=== PATIENT | female | born 1950 | race Caucasian/White ===

== ENCOUNTER 2016-04-21 09:29 | Inpatient (IN) | payer MEDICARE, MEDICAID ==
[~2016-04-21] VITALS: Ht 180.3 cm; Wt 65.8 kg
[2016-04-21] MEDS ORDERED: HYDROCODONE/APAP 5/325MG 1 EACH TABLET ONE (09:43)
[2016-04-21] MEDS ORDERED: HYDROCODONE/APAP 5/325MG 1 EACH TABLET PO ONE (10:00)
[2016-04-21 10:32] LABS: BASOPHILS % (AUTO) 0.4 % (0.0-2.0); DIFF TOTAL % 100 %; EOSINOPHILS # (AUTO) 0.4 /CMM (0.0-0.7); EOSINOPHILS % (AUTO) 6.3 % (0.0-6.0); HEMATOCRIT 37 % (33-45); HEMOGLOBIN 12.4 g/dL (11.5-14.8); LYMPHOCYTES # (AUTO) 1.5 /CMM (0.8-4.8); LYMPHOCYTES % (AUTO) 25.1 % (20.0-44.0); MEAN CORPUSCULAR HEMOGLOBIN 28 PG (26.0-33.0); MEAN CORPUSCULAR HGB CONC 34 g/dl (31.0-36.0); MEAN CORPUSCULAR VOLUME 84 fL (82-100); MONOCYTES # (AUTO) 0.7 /CMM (0.1-1.30); MONOCYTES % (AUTO) 11.7 % (2.0-12.0); NEUTROPHILS # (AUTO) 3.3 /CMM (1.8-8.9); NEUTROPHILS % (AUTO) 56.5 % (43.0-81.0); PLATELET COUNT (AUTO) 292 /CMM (150-450); RED BLOOD CELL COUNT(AUTO) 4.41 MIL/uL (4.0-5.2); WHITE BLOOD COUNT (AUTO) 5.8 K/uL (4.3-11.0)
[2016-04-21 10:41] LABS: ANION GAP 12 (5-14); CALCIUM, SERUM 8.7 mg/dL (8.5-10.1); CARBON DIOXIDE 27 mmol/L (21-32); CHLORIDE 107 mmol/L (98-107); CREATININE 1.8 mg/dL (0.6-1.3); GFR 28 mL/min (>60); GLUCOSE 132 mg/dL (74-106); POTASSIUM 3.6 mmol/L (3.5-5.1); SODIUM SERUM 142 mmol/L (136-145); UREA NITROGEN, BLOOD 28 mg/dL (7-18)
[2016-04-21 10:46] LABS: INR 0.91 (0.87-1.13); PROTHROMBIN TIME 9.8 SECS (9.5-12.7)
[2016-04-21 10:47] LABS: ALANINE AMINOTRANSFERASE 18 U/L (12-78); ALBUMIN 3.5 g/dL (3.4-5.0); ASPARTATE AMINOTRANSFERASE 12 U/L (15-37); BILIRUBIN,DIRECT 0.1 mg/dL (0.0-0.2); BILIRUBIN,TOTAL 0.2 mg/dL (0.2-1.0); INDIRECT BILIRUBIN 0.1 mg/dL (0.0-1.1); TOTAL PROTEIN, SERUM 7.5 g/dL (6.4-8.2)
[2016-04-21 10:48] LABS: TROPONIN I < 0.017 ng/mL (0.00-0.056)
[2016-04-21] MEDS ORDERED: AMLO10TA2 PO (12:23)
[2016-04-21] MEDS ORDERED: ESCI20TA PO (12:23)
[2016-04-21] MEDS ORDERED: BUPR300T54 PO (12:23)
[2016-04-21] MEDS ORDERED: GABA600T2 PO (12:23)
[2016-04-21] MEDS ORDERED: PRAV40TA3 PO (12:23)
[2016-04-21] MEDS ORDERED: QUET25TA PO (12:23)
[2016-04-21] MEDS ORDERED: CLON0.5T4 PO (12:23)
[2016-04-21] MEDS ORDERED: LOSA25TA13 PO (12:23)
[2016-04-21] MEDS ORDERED: OMEP20TA68 PO (12:23)
[2016-04-21] MEDS ORDERED: HYDR-3026 PO (12:23)
[2016-04-21 12:34] VITALS: BP 129/74
[2016-04-21] MEDS ORDERED: ZOLPIDEM TARTRATE 5 MG TABLET PO PRN (14:00)
[2016-04-21] MEDS ORDERED: MAGNESIUM HYDROXIDE 30 ML UDC PO PRN (14:00)
[2016-04-21] MEDS ORDERED: MAG HYDROX/AL HYDROX/SIMETH 30 ML UDC PO PRN (14:00)
[2016-04-21] MEDS: ACETAMINOPHEN 325 MG TABLET PO PRN (15:49)
[2016-04-21 16:10] VITALS: BP 132/71
[2016-04-21] MEDS: GABAPENTIN 300 MG CAPSULE PO SCH (17:00)
[2016-04-21 19:47] VITALS: BP 115/59
[2016-04-21] MEDS: ATORVASTATIN 10 MG TABLET PO SCH (22:07)
[2016-04-21] MEDS: LOSARTAN POTASSIUM 25 MG TABLET PO SCH (22:07)
[2016-04-22 07:24] LABS: ALBUMIN 3.2 g/dL (3.4-5.0); BILIRUBIN,TOTAL 0.2 mg/dL (0.2-1.0); CALCIUM, SERUM 8.4 mg/dL (8.5-10.1); CREATININE 1.7 mg/dL (0.6-1.3); POTASSIUM 4.2 mmol/L (3.5-5.1); TOTAL PROTEIN, SERUM 6.8 g/dL (6.4-8.2)
[2016-04-22] MEDS: PANTOPRAZOLE 40 MG TABLET.DR PO SCH (07:30)
[2016-04-22] MEDS: GABAPENTIN 300 MG CAPSULE PO SCH ×2 (08:47→18:09)
[2016-04-22] MEDS: GUAIFENESIN/CODEINE 10 ML UDC PO PRN ×2 (08:47→18:21)
[2016-04-22] MEDS: AMLODIPINE BESYLATE 10 MG TABLET PO SCH (08:48)
[2016-04-22] MEDS: ACETAMINOPHEN 325 MG TABLET PO PRN ×2 (08:55→18:21)
[2016-04-22 09:23] VITALS: BP 16/57
[2016-04-22] MEDS ORDERED: Z GUARD REMEDY 2 OZ OINT TP PRN (12:00)
[2016-04-22] MEDS: NEOMY SULF/BACITRAC ZN/POLY 15 GM TUBE TP SCH (13:12)
[2016-04-22] MEDS: ARIPIPRAZOLE 5 MG TABLET PO SCH (14:20)
[2016-04-22 15:52] VITALS: BP 136/69
[2016-04-22 20:08] VITALS: BP 161/87
[2016-04-22] MEDS: QUETIAPINE FUMARATE 25 MG TABLET PO SCH (21:20)
[2016-04-22] MEDS: ATORVASTATIN 10 MG TABLET PO SCH (21:20)
[2016-04-22] MEDS: LOSARTAN POTASSIUM 25 MG TABLET PO SCH (21:22)
[2016-04-23] MEDS: ACETAMINOPHEN 325 MG TABLET PO PRN (06:12)
[2016-04-23] MEDS: GUAIFENESIN/CODEINE 10 ML UDC PO PRN ×2 (06:12→21:37)
[2016-04-23 08:02] VITALS: BP 121/62
[2016-04-23] MEDS: PANTOPRAZOLE 40 MG TABLET.DR PO SCH (08:10)
[2016-04-23] MEDS: GABAPENTIN 300 MG CAPSULE PO SCH ×2 (08:28→16:56)
[2016-04-23] MEDS: BUPROPION XL 150 MG TAB.ER.24 PO SCH (08:28)
[2016-04-23] MEDS: AMLODIPINE BESYLATE 10 MG TABLET PO SCH (08:29)
[2016-04-23] MEDS: NEOMY SULF/BACITRAC ZN/POLY 15 GM TUBE TP SCH (08:29)
[2016-04-23] MEDS: ARIPIPRAZOLE 5 MG TABLET PO SCH (08:29)
[2016-04-23] MEDS ORDERED: IV NS 0.9% 1,000 ML BAG IV ONE (12:00)
[2016-04-23] MEDS: LORAZEPAM 0.5 MG TABLET PO PRN (12:14)
[2016-04-23] MEDS ORDERED: IV SET PRIMARY PUMP SET 1 EA INFUS.SET MC ONE (13:11)
[2016-04-23 16:21] VITALS: BP 136/69
[2016-04-23 20:03] VITALS: BP 147/64
[2016-04-23] MEDS: LOSARTAN POTASSIUM 25 MG TABLET PO SCH (21:27)
[2016-04-23] MEDS: QUETIAPINE FUMARATE 25 MG TABLET PO SCH (21:28)
[2016-04-23] MEDS: ATORVASTATIN 10 MG TABLET PO SCH (21:28)
[2016-04-24] MEDS: LORAZEPAM 0.5 MG TABLET PO PRN ×2 (04:37→15:25)
[2016-04-24] MEDS: ACETAMINOPHEN 325 MG TABLET PO PRN ×2 (04:45→22:49)
[2016-04-24 07:48] LABS: CHOLESTEROL 174 mg/dL (<200); HDL CHOLESTEROL 34 mg/dL (40-60); LDL 89 mg/dL (0-99); TRIGLYCERIDES 249 mg/dL (30-150)
[2016-04-24 08:00] VITALS: BP 139/74
[2016-04-24] MEDS: PANTOPRAZOLE 40 MG TABLET.DR PO SCH (08:02)
[2016-04-24] MEDS: BUPROPION XL 150 MG TAB.ER.24 PO SCH (08:16)
[2016-04-24] MEDS: ARIPIPRAZOLE 5 MG TABLET PO SCH ×2 (08:16→16:45)
[2016-04-24] MEDS: AMLODIPINE BESYLATE 10 MG TABLET PO SCH (08:16)
[2016-04-24] MEDS: GABAPENTIN 300 MG CAPSULE PO SCH ×2 (08:16→16:45)
[2016-04-24] MEDS: NEOMY SULF/BACITRAC ZN/POLY 15 GM TUBE TP SCH (10:05)
[2016-04-24 16:00] VITALS: BP 147/74
[2016-04-24] MEDS: GUAIFENESIN/CODEINE 10 ML UDC PO PRN (17:24)
[2016-04-24 20:00] VITALS: BP 148/81
[2016-04-24] MEDS: ATORVASTATIN 10 MG TABLET PO SCH (21:28)
[2016-04-24] MEDS: LOSARTAN POTASSIUM 25 MG TABLET PO SCH (21:28)
[2016-04-24] MEDS: QUETIAPINE FUMARATE 25 MG TABLET PO SCH (21:28)
[2016-04-25 07:45] LABS: BASOPHILS % (AUTO) 0.4 % (0.0-2.0); DIFF TOTAL % 100 %; EOSINOPHILS # (AUTO) 0.5 /CMM (0.0-0.7); EOSINOPHILS % (AUTO) 8.7 % (0.0-6.0); HEMATOCRIT 35 % (33-45); HEMOGLOBIN 11.7 g/dL (11.5-14.8); LYMPHOCYTES # (AUTO) 1.4 /CMM (0.8-4.8); LYMPHOCYTES % (AUTO) 26.1 % (20.0-44.0); MEAN CORPUSCULAR HEMOGLOBIN 29 PG (26.0-33.0); MEAN CORPUSCULAR HGB CONC 34 g/dl (31.0-36.0); MEAN CORPUSCULAR VOLUME 84 fL (82-100); MONOCYTES # (AUTO) 0.5 /CMM (0.1-1.30); MONOCYTES % (AUTO) 9.7 % (2.0-12.0); NEUTROPHILS % (AUTO) 55.1 % (43.0-81.0); PLATELET COUNT (AUTO) 260 /CMM (150-450); RED BLOOD CELL COUNT(AUTO) 4.09 MIL/uL (4.0-5.2); WHITE BLOOD COUNT (AUTO) 5.4 K/uL (4.3-11.0)
[2016-04-25 07:57] LABS: CALCIUM, SERUM 8.4 mg/dL (8.5-10.1); CREATININE 1.6 mg/dL (0.6-1.3); POTASSIUM 3.7 mmol/L (3.5-5.1)
[2016-04-25 08:00] VITALS: BP 126/66
[2016-04-25] MEDS: GABAPENTIN 300 MG CAPSULE PO SCH ×2 (08:43→16:29)
[2016-04-25] MEDS: AMLODIPINE BESYLATE 10 MG TABLET PO SCH (08:44)
[2016-04-25] MEDS: ARIPIPRAZOLE 5 MG TABLET PO SCH ×2 (08:44→16:30)
[2016-04-25] MEDS: BUPROPION XL 150 MG TAB.ER.24 PO SCH (08:44)
[2016-04-25] MEDS: PANTOPRAZOLE 40 MG TABLET.DR PO SCH (08:44)
[2016-04-25] MEDS: NEOMY SULF/BACITRAC ZN/POLY 15 GM TUBE TP SCH (08:45)
[2016-04-25] MEDS: GUAIFENESIN/CODEINE 10 ML UDC PO PRN ×2 (09:30→18:07)
[2016-04-25 16:00] VITALS: BP 131/59
[2016-04-25 20:00] VITALS: BP 139/65
[2016-04-25] MEDS: LORAZEPAM 0.5 MG TABLET PO PRN (20:27)
[2016-04-25] MEDS: QUETIAPINE FUMARATE 25 MG TABLET PO SCH (21:17)
[2016-04-25] MEDS: LOSARTAN POTASSIUM 25 MG TABLET PO SCH (21:17)
[2016-04-25] MEDS: ATORVASTATIN 10 MG TABLET PO SCH (21:17)
[2016-04-26] MEDS: GUAIFENESIN/CODEINE 10 ML UDC PO PRN ×2 (07:09→22:16)
[2016-04-26 07:20] LABS: BASOPHILS % (AUTO) 0.3 % (0.0-2.0); DIFF TOTAL % 100 %; EOSINOPHILS # (AUTO) 0.4 /CMM (0.0-0.7); EOSINOPHILS % (AUTO) 5.2 % (0.0-6.0); HEMATOCRIT 38 % (33-45); HEMOGLOBIN 12.5 g/dL (11.5-14.8); LYMPHOCYTES # (AUTO) 2.5 /CMM (0.8-4.8); LYMPHOCYTES % (AUTO) 29.5 % (20.0-44.0); MEAN CORPUSCULAR HEMOGLOBIN 28 PG (26.0-33.0); MEAN CORPUSCULAR HGB CONC 33 g/dl (31.0-36.0); MEAN CORPUSCULAR VOLUME 84 fL (82-100); MONOCYTES # (AUTO) 0.8 /CMM (0.1-1.30); MONOCYTES % (AUTO) 9.3 % (2.0-12.0); NEUTROPHILS # (AUTO) 4.7 /CMM (1.8-8.9); NEUTROPHILS % (AUTO) 55.7 % (43.0-81.0); PLATELET COUNT (AUTO) 284 /CMM (150-450); RED BLOOD CELL COUNT(AUTO) 4.49 MIL/uL (4.0-5.2); WHITE BLOOD COUNT (AUTO) 8.4 K/uL (4.3-11.0)
[2016-04-26 07:22] LABS: ALBUMIN 3.5 g/dL (3.4-5.0); BILIRUBIN,TOTAL 0.3 mg/dL (0.2-1.0); CREATININE 1.7 mg/dL (0.6-1.3); PHOSPHORUS 4.3 mg/dL (2.5-4.9); POTASSIUM 4.2 mmol/L (3.5-5.1); TOTAL PROTEIN, SERUM 7.7 g/dL (6.4-8.2)
[2016-04-26 08:00] VITALS: BP 141/89
[2016-04-26] MEDS: AMLODIPINE BESYLATE 10 MG TABLET PO SCH (08:24)
[2016-04-26] MEDS: ARIPIPRAZOLE 5 MG TABLET PO SCH ×2 (08:24→17:04)
[2016-04-26] MEDS: NEOMY SULF/BACITRAC ZN/POLY 15 GM TUBE TP SCH (08:24)
[2016-04-26] MEDS: BUPROPION XL 150 MG TAB.ER.24 PO SCH (08:24)
[2016-04-26] MEDS: PANTOPRAZOLE 40 MG TABLET.DR PO SCH (08:24)
[2016-04-26] MEDS: GABAPENTIN 300 MG CAPSULE PO SCH ×2 (08:24→17:04)
[2016-04-26] MEDS: LORAZEPAM 0.5 MG TABLET PO PRN (09:24)
[2016-04-26 15:59] VITALS: BP 135/63
[2016-04-26 19:46] VITALS: BP 139/70
[2016-04-26] MEDS: LOSARTAN POTASSIUM 25 MG TABLET PO SCH (21:30)
[2016-04-26] MEDS: QUETIAPINE FUMARATE 25 MG TABLET PO SCH (21:31)
[2016-04-26] MEDS: ATORVASTATIN 10 MG TABLET PO SCH (21:31)
[2016-04-27] MEDS: LORAZEPAM 0.5 MG TABLET PO PRN ×3 (00:28→22:00)
[2016-04-27 08:00] VITALS: BP 119/68
[2016-04-27] MEDS: PANTOPRAZOLE 40 MG TABLET.DR PO SCH (08:23)
[2016-04-27] MEDS: ARIPIPRAZOLE 5 MG TABLET PO SCH ×2 (08:30→16:11)
[2016-04-27] MEDS: AMLODIPINE BESYLATE 10 MG TABLET PO SCH (08:30)
[2016-04-27] MEDS: GABAPENTIN 300 MG CAPSULE PO SCH ×2 (08:30→16:11)
[2016-04-27] MEDS: BUPROPION XL 150 MG TAB.ER.24 PO SCH (08:31)
[2016-04-27] MEDS: NEOMY SULF/BACITRAC ZN/POLY 15 GM TUBE TP SCH (08:33)
[2016-04-27 16:00] VITALS: BP 123/63
[2016-04-27] MEDS: GUAIFENESIN/CODEINE 10 ML UDC PO PRN (18:57)
[2016-04-27 20:01] VITALS: BP 121/64
[2016-04-27] MEDS: LOSARTAN POTASSIUM 25 MG TABLET PO SCH (21:55)
[2016-04-27] MEDS: QUETIAPINE FUMARATE 25 MG TABLET PO SCH (21:55)
[2016-04-27] MEDS: ATORVASTATIN 10 MG TABLET PO SCH (21:55)
[2016-04-28 08:07] VITALS: BP 109/51
[2016-04-28] MEDS: AMLODIPINE BESYLATE 10 MG TABLET PO SCH (08:18)
[2016-04-28] MEDS: ARIPIPRAZOLE 5 MG TABLET PO SCH ×2 (08:18→17:03)
[2016-04-28] MEDS: PANTOPRAZOLE 40 MG TABLET.DR PO SCH (08:18)
[2016-04-28] MEDS: BUPROPION XL 150 MG TAB.ER.24 PO SCH (08:18)
[2016-04-28] MEDS: NEOMY SULF/BACITRAC ZN/POLY 15 GM TUBE TP SCH (08:19)
[2016-04-28] MEDS: GABAPENTIN 300 MG CAPSULE PO SCH ×2 (08:19→17:03)
[2016-04-28] MEDS: GUAIFENESIN/CODEINE 10 ML UDC PO PRN ×2 (11:03→22:46)
[2016-04-28] MEDS: LORAZEPAM 0.5 MG TABLET PO PRN (14:43)
[2016-04-28 16:39] VITALS: BP 133/61
[2016-04-28] MEDS ORDERED: AZITHROMYCIN 250 MG TABLET PO ONE (20:00)
[2016-04-28] MEDS: ATORVASTATIN 10 MG TABLET PO SCH (21:09)
[2016-04-28] MEDS: QUETIAPINE FUMARATE 25 MG TABLET PO SCH (21:12)
[2016-04-28] MEDS: LOSARTAN POTASSIUM 25 MG TABLET PO SCH (21:13)
[2016-04-28 22:33] VITALS: BP 134/69
[2016-04-29] MEDS: GUAIFENESIN/CODEINE 10 ML UDC PO PRN ×3 (04:06→21:43)
[2016-04-29 08:17] VITALS: BP 152/83
[2016-04-29] MEDS: AMLODIPINE BESYLATE 10 MG TABLET PO SCH (08:40)
[2016-04-29] MEDS: GABAPENTIN 300 MG CAPSULE PO SCH ×2 (08:40→16:59)
[2016-04-29] MEDS: ARIPIPRAZOLE 5 MG TABLET PO SCH ×2 (08:41→16:59)
[2016-04-29] MEDS: AZITHROMYCIN 250 MG TABLET PO SCH (08:41)
[2016-04-29] MEDS: BUPROPION XL 150 MG TAB.ER.24 PO SCH (08:41)
[2016-04-29] MEDS: PANTOPRAZOLE 40 MG TABLET.DR PO SCH (08:41)
[2016-04-29] MEDS: NEOMY SULF/BACITRAC ZN/POLY 15 GM TUBE TP SCH (08:42)
[2016-04-29] MEDS: LORAZEPAM 0.5 MG TABLET PO PRN ×2 (08:48→20:13)
[2016-04-29 16:12] LABS: *SPE ALBUMIN 3.8 g/dL (2.9-4.4)
[2016-04-29 16:20] VITALS: BP 146/96
[2016-04-29 20:10] VITALS: BP 136/70
[2016-04-29] MEDS: ATORVASTATIN 10 MG TABLET PO SCH (21:44)
[2016-04-29] MEDS: LOSARTAN POTASSIUM 25 MG TABLET PO SCH (21:44)
[2016-04-29] MEDS: QUETIAPINE FUMARATE 25 MG TABLET PO SCH (21:45)
[2016-04-30 02:18] LABS: VIT D, 25-HYDROXY 37.6 ng/mL (30.0-100.0)
[2016-04-30] MEDS: GUAIFENESIN/CODEINE 10 ML UDC PO PRN ×2 (03:57→11:15)
[2016-04-30 08:00] VITALS: BP 136/70
[2016-04-30] MEDS: ARIPIPRAZOLE 5 MG TABLET PO SCH (08:14)
[2016-04-30 08:15] VITALS: BP 136/70
[2016-04-30] MEDS: AZITHROMYCIN 250 MG TABLET PO SCH (08:15)
[2016-04-30] MEDS: GABAPENTIN 300 MG CAPSULE PO SCH (08:15)
[2016-04-30] MEDS: AMLODIPINE BESYLATE 10 MG TABLET PO SCH (08:15)
[2016-04-30] MEDS: PANTOPRAZOLE 40 MG TABLET.DR PO SCH (08:15)
[2016-04-30] MEDS: BUPROPION XL 150 MG TAB.ER.24 PO SCH (08:15)
[2016-04-30] MEDS: NEOMY SULF/BACITRAC ZN/POLY 15 GM TUBE TP SCH (09:19)
[2016-04-30 13:21] LABS: PTH, INTACT 52 pg/mL (15-65)
== END 2016-04-30 12:15 | disposition home or self-care (01) | DRG 885 ==
LOC: ER 09:31 → GPS 12:07
PROVIDERS: ADMIT Psychiatry & Neurology Psychiatry; ATTEND Family Medicine
DX: F33.3 Major depressive disorder, recurrent, severe with psychotic symptoms (principal); N17.9 Acute kidney failure, unspecified; N18.3 Chronic kidney disease, stage 3 (moderate); I12.9 Hypertensive chronic kidney disease with stage 1 through stage 4 chronic kidney disease, or unspecified chronic kidney disease; E78.5 Hyperlipidemia, unspecified; J20.9 Acute bronchitis, unspecified; K21.9 Gastro-esophageal reflux disease without esophagitis; N28.1 Cyst of kidney, acquired; Z85.72 Personal history of non-Hodgkin lymphomas; Z87.442 Personal history of urinary calculi; J32.9 Chronic sinusitis, unspecified; Z90.5 Acquired absence of kidney; W06.XXXA Fall from bed, initial encounter; Y93.9 Activity, unspecified; Y92.009 Unspecified place in unspecified non-institutional (private) residence as the place of occurrence of the external cause; Y99.9 Unspecified external cause status
CPT/HCPCS: 36415; 70450-TC; 71010-TC; 76770-TC; 80048-TC; 80053-TC; 80061-TC; 80076-TC; 82306; 82550-TC; 82652; 83735-TC; 83970; 84100-TC; 84155; 84165; 84484-TC; 85025-TC; 85730-TC; 86850-TC; 87081-TC; A4606; J7030; Z7610

== ENCOUNTER 2016-11-06 13:41 | Emergency (ER) | payer MEDICARE, MEDICAID ==
[~2016-11-06] VITALS: Ht 177.8 cm; Wt 68.0 kg
[~2016-11-06 13:41] MED LIST: AMLO10TA2 PO; BUPR300T54 PO; CLON0.5T4 PO; ESCI20TA PO; GABA600T2 PO; HYDR-3026 PO; LOSA25TA13 PO; OMEP20TA68 PO; PRAV40TA3 PO; QUET25TA PO
--- NOTE | 2016-11-06 13:43 | NUR ---
AAOX3, CAME TO ER C/O DIARRHEA X 4 DAYS. DENIES NAUSEA AND VOMITING. RESP IS EVEN AND UNLABORED WITH NAD NOTED. SKIN IS WARM AND DRY. AWAITING MD FOR EVAL.
[2016-11-06] MEDS ORDERED: ACETAMINOPHEN 325 MG TABLET ONE (15:53)
--- NOTE | 2016-11-06 16:22 | NUR ---
PT. VERBALIZED UNDERSTANDING OF AFTERCARE INSTRUCTIONS.Patient discharged to home in stable condition. Written and verbal after care instructions given. Patient verbalizes understanding of instruction.
[2016-11-06 16:24] VITALS: BP 137/72
[2016-11-06] MEDS ORDERED: ACETAMINOPHEN 325 MG TABLET PO ONE (16:30)
== END 2016-11-06 16:24 | disposition home or self-care (01) ==
LOC: ER 13:45
DX: R19.7 Diarrhea, unspecified (principal); I10 Essential (primary) hypertension; R15.9 Full incontinence of feces; Z88.0 Allergy status to penicillin; Z88.1 Allergy status to other antibiotic agents
CPT/HCPCS: 99283; A4606; Z7610

== ENCOUNTER 2017-01-23 18:22 | Emergency (ER) | payer MEDICARE, MEDICAID ==
[~2017-01-23] VITALS: Ht 167.6 cm; Wt 54.4 kg
--- NOTE | 2017-01-23 18:35 | NUR ---
AAOX3, BIBRA C/O ABNORMAL LABS. PER PATIENT REPORT, PMD CALLED HER D/T ABNORMAL CREATININE. RR IS EVEN AND UNLABORED WITH NAD NOTED. SKIN IS WARM AND DRY. PLACED ON HOSPITAL GOWN, PLACED MONITOR. AWAITING MD FOR EVAL.
[2017-01-23 18:51] LABS: BASOPHILS # (AUTO) 0.1 /CMM (0.0-0.2); EOSINOPHILS # (AUTO) 0.4 /CMM (0.0-0.7); EOSINOPHILS % (AUTO) 6.3 % (0.0-6.0); HEMATOCRIT 37 % (33-45); HEMOGLOBIN 12.6 g/dL (11.5-14.8); LYMPHOCYTES # (AUTO) 1.8 /CMM (0.8-4.8); MEAN CORPUSCULAR HEMOGLOBIN 30 PG (26.0-33.0); MEAN CORPUSCULAR HGB CONC 34 g/dl (31.0-36.0); MEAN CORPUSCULAR VOLUME 87 fL (82-100); MONOCYTES # (AUTO) 0.5 /CMM (0.1-1.30); MONOCYTES % (AUTO) 8.4 % (2.0-12.0); NEUTROPHILS # (AUTO) 3.7 /CMM (1.8-8.9); NEUTROPHILS % (AUTO) 56.3 % (43.0-81.0); PLATELET COUNT (AUTO) 304 /CMM (150-450); RDW COEFFICIENT OF VARIATION 13.1 (11.5-15.0); RED BLOOD CELL COUNT(AUTO) 4.25 MIL/uL (4.0-5.2); WHITE BLOOD COUNT (AUTO) 6.5 K/uL (4.3-11.0)
[2017-01-23 19:06] LABS: CALCIUM, SERUM 9.1 mg/dL (8.5-10.1); CARBON DIOXIDE 25 mmol/L (21-32); CHLORIDE 103 mmol/L (98-107); CREATININE 2.3 mg/dL (0.6-1.3); GLUCOSE 109 mg/dL (74-106); POTASSIUM 4.5 mmol/L (3.5-5.1); SODIUM SERUM 138 mmol/L (136-145); UREA NITROGEN, BLOOD 30 mg/dL (7-18)
[2017-01-23 19:12] LABS: ALANINE AMINOTRANSFERASE 20 U/L (12-78); ALBUMIN 3.7 g/dL (3.4-5.0); ALKALINE PHOSPHATASE 87 U/L (46-116); ASPARTATE AMINOTRANSFERASE 20 U/L (15-37); BILIRUBIN,TOTAL 0.3 mg/dL (0.2-1.0); TOTAL PROTEIN, SERUM 7.7 g/dL (6.4-8.2)
[2017-01-23 19:13] LABS: TROPONIN I < 0.017 ng/mL (0.00-0.056)
[2017-01-23 19:15] LABS: INR 0.95 (0.87-1.13); PROTHROMBIN TIME 9.9 SECS (9.5-12.7)
--- NOTE | 2017-01-23 20:06 | NUR ---
CALLED DR.DANIEL CORRIGAN AT [phone], LICENSED STAFF MFT FOR HIM, PAGED TO CALL BACK
--- NOTE | 2017-01-23 20:49 | NUR ---
REPAGED PLUMBING AND HEATING CONTRACTOR FOR WHO IS
--- NOTE | 2017-01-23 21:00 | NUR ---
Patient is resting comfortably in bed with eyes closed. Easily aroused. VSS
--- NOTE | 2017-01-23 21:18 | NUR ---
PT TO CTSCAN
--- NOTE | 2017-01-23 21:28 | NUR ---
CALLED [facility], SPOKE WITH THE NURSING SUP. JOHNSON, SHE ASKED ME TO FAX OVER AUTHORIZATION AND SHE WILL SEND ME ANYTHING SHE HAS ABOUT PAST SURGERIES ON THE PT.
--- NOTE | 2017-01-23 21:50 | NUR ---
CALLED [facility], SPOKE WITH JUAN, PRESENTED PT, AWAITING CALLBACK
--- NOTE | 2017-01-23 23:29 | NUR ---
CALLED [facility], SPOKE WITH JUAN, FAXED CT AND ULTRASOUND RESULTS, AWAITING CALL BACK FROM UROLOGIST
--- NOTE | 2017-01-23 23:31 | NUR ---
URINE COLLECTED, SENT TO LAB
[2017-01-23 23:40] LABS: APPEARANCE,URINE CLOUDY (CLEAR); BILIRUBIN,URINE NEGATIVE (NEGATIVE); BLOOD, URINE 3+ Ery/uL (NEGATIVE); KETONES,URINE NEGATIVE (NEGATIVE); LEUKOCYTE ESTERASE ,URINE 1+ (NEGATIVE); NITRITE, URINE NEGATIVE (NEGATIVE); PROTEIN,URINE 1+ mg/dl (NEGATIVE); UGLUCOSE NEGATIVE (NEGATIVE); UROBILINOGEN,URINE 0.2 EU/dL (0.2)
[2017-01-23 23:41] LABS: COLOR,URINE DARK YELLOW (YELLOW)
[2017-01-23 23:45] LABS: BACTERIA,URINE Moderate /HPF (None Seen); RBC,URINE TOO NUMEROUS TO COUN /HPF (0-2); SQUAMOUS EPITHELIAL CELL,UR Few /HPF (None Seen); WBC,URINE 21-50 /HPF (0-3)
--- NOTE | 2017-01-24 00:23 | NUR ---
PULLED OUT IVPB CIPRO 400MG RTU D/T IVPB CIPRO 200MG RTU NOT AVAILABLE IN [facility]. ONLY 200MG IVPB GIVEN ORDERED.
--- NOTE | 2017-01-24 02:54 | NUR ---
DR. PERALTA SPOKE TO PT REGARDING D/C AND RESULTS
[2017-01-24 03:13] VITALS: BP 134/77
--- NOTE | 2017-01-24 03:14 | NUR ---
Patient discharged by taxi for transport home in stable condition. Written and verbal after care instructions given. Patient verbalizes understanding of instruction. IV removed. Catheter intact and site benign. Pressure and 4x4 applied to site. No bleeding noted. Pt ambulatory with a steady gait. VSS, NAD noted on DC. Denies complaint on DC.
== END 2017-01-24 03:27 | disposition home or self-care (01) ==
LOC: ER 18:24
DX: N17.9 Acute kidney failure, unspecified (principal); R82.99 Other abnormal findings in urine; I10 Essential (primary) hypertension; Z87.442 Personal history of urinary calculi; Z88.0 Allergy status to penicillin; Z90.5 Acquired absence of kidney; Z88.1 Allergy status to other antibiotic agents
CPT/HCPCS: 36415; 71010-TC; 76770-TC; 80048-TC; 80076-TC; 81000-TC; 84484-TC; 85025-TC; 85730-TC; 87086-TC; A4216; A4606; J0744; J2270; J2405; Z7610

== ENCOUNTER 2024-05-31 07:11 | Inpatient (IN) | payer MEDICARE, OTHER ==
[~2024-05-31] VITALS: Ht 177.8 cm; Wt 67.6 kg
[~2024-05-31 07:11] MED LIST changes: +AMLO-213 PO; -AMLO10TA2 PO; +BUPR-319 PO; -BUPR300T54 PO; +GABA600T12 PO; -GABA600T2 PO; -HYDR-3026 PO; +HYDR-500 PO; -LOSA25TA13 PO; +LOSA25TA27 PO; +OMEP20TA5 PO; -OMEP20TA68 PO
[2024-05-31] MEDS ORDERED: MIDAZOLAM HCL 2 MG/2ML VIAL ONE (08:46)
[2024-05-31] MEDS ORDERED: FENTANYL PF 100MCG/2ML AMPUL ONE (08:46)
[2024-05-31] MEDS ORDERED: FAMOTIDINE/PF INJ 20 MG/2 ML VIAL IV ONE (08:46)
[2024-05-31] MEDS ORDERED: ROCURONIUM BROMIDE 50 MG/5 ML ONE (08:46)
[2024-05-31] MEDS ORDERED: LIDOCAINE 2% JEL UROJET 10 ML MM ONE (08:51)
[2024-05-31] MEDS ORDERED: LIDOCAINE 1%-EPI 1:100,000 20 ML VIAL ONE (09:08)
[2024-05-31] MEDS ORDERED: BUPIVACAINE 0.5 % PF 150 MG/30 ML VIAL ONE (09:08)
[2024-05-31] MEDS ORDERED: HEPARIN SODIUM, PORCINE 1,000 UNIT/ML VIAL ONE (10:46)
[2024-05-31] MEDS ORDERED: MEPERIDINE HCL/PF 50 MG/ML DISP.SYRIN IV PRN (11:00)
[2024-05-31] MEDS ORDERED: hydrOXYzine HCL SYRUP 10 MG/5 ML UDC PO PRN (12:00)
[2024-05-31 12:19] VITALS: BP 129/64; TEMP 97.7; O2SAT 100
[2024-05-31] MEDS ORDERED: ONDANSETRON HCL/PF 4 MG/2 ML VIAL IVP PRN (12:30)
[2024-05-31] MEDS ORDERED: NITR0.3T SL (13:33)
[2024-05-31] MEDS ORDERED: MIRT-91 PO (13:33)
[2024-05-31] MEDS ORDERED: TICA60TA PO (13:33)
[2024-05-31] MEDS ORDERED: ASPI-1169 PO (13:33)
[2024-05-31] MEDS ORDERED: CARV3.12 PO (13:33)
[2024-05-31] MEDS ORDERED: ATOR40TA PO (13:33)
[2024-05-31] MEDS ORDERED: HYDR-4076 PO (13:33)
[2024-05-31 16:00] VITALS: BP 121/64; TEMP 98.6; O2SAT 97
[2024-05-31] MEDS ORDERED: NITROGLYCERIN 0.4 MG/TAB BOTTLE SL PRN (16:30)
[2024-05-31] MEDS: hydrALAZINE HCL 25 MG TABLET PO SCH (16:44)
[2024-05-31] MEDS: CARVEDILOL 3.125 MG TABLET PO SCH (16:44)
[2024-05-31] MEDS ORDERED: clonazePAM 0.5 MG TABLET PO SCH (17:00)
[2024-05-31] MEDS ORDERED: GABAPENTIN 400 MG CAPSULE PO SCH (17:00)
[2024-05-31 20:00] VITALS: BP 111/66; TEMP 98.1; O2SAT 98
[2024-05-31] MEDS: ATORVASTATIN 40 MG TABLET PO SCH (21:23)
[2024-05-31] MEDS ORDERED: LOSARTAN POTASSIUM 25 MG TABLET PO SCH (22:00)
[2024-05-31] MEDS ORDERED: ATORVASTATIN 40 MG TABLET PO SCH (22:00)
[2024-05-31] MEDS ORDERED: QUETIAPINE FUMARATE 25 MG TABLET PO SCH (22:00)
[2024-06-01] MEDS: HYDROCODONE/APAP 5/325MG TABLET PO PRN (00:18)
[2024-06-01 07:30] VITALS: BP 134/67; TEMP 98.1; O2SAT 96
[2024-06-01] MEDS ORDERED: PANTOPRAZOLE 40 MG TABLET.DR PO SCH (07:30)
[2024-06-01 07:54] LABS: BASOPHILS % (AUTO) 0.4 % (0.0-2.0); EOSINOPHILS # (AUTO) 0.2 K/uL (0.0-0.7); EOSINOPHILS % (AUTO) 2.4 % (0.0-6.0); HEMATOCRIT 25 % (33-45); HEMOGLOBIN 8.4 g/dL (11.5-14.8); LYMPHOCYTES # (AUTO) 2.2 K/uL (0.8-4.8); LYMPHOCYTES % (AUTO) 29.8 % (20.0-44.0); MEAN CORPUSCULAR HEMOGLOBIN 34 PG (26.0-33.0); MEAN CORPUSCULAR HGB CONC 34 g/dl (31.0-36.0); MEAN CORPUSCULAR VOLUME 99 fL (82-100); MONOCYTES # (AUTO) 0.5 K/uL (0.1-1.30); MONOCYTES % (AUTO) 7.1 % (2.0-12.0); NEUTROPHILS # (AUTO) 4.4 K/uL (1.8-8.9); NEUTROPHILS % (AUTO) 60.3 % (43.0-81.0); PLATELET COUNT (AUTO) 305 K/uL (150-450); RED BLOOD CELL COUNT(AUTO) 2.49 MIL/uL (4.0-5.2); RED CELL DISTRIBUTION WIDTH 14.3 % (11.5-15.0); WHITE BLOOD COUNT (AUTO) 7.4 K/uL (4.3-11.0)
[2024-06-01 08:05] LABS: CALCIUM, SERUM 6.5 mg/dL (8.5-10.1); CREATININE 4.4 mg/dL (0.6-1.3); MAGNESIUM 2.1 mg/dL (1.8-2.4); POTASSIUM 3.9 mmol/L (3.5-5.1)
[2024-06-01] MEDS: ASPIRIN 81 MG TAB.CHEW PO SCH (08:33)
[2024-06-01] MEDS: MIRTAZAPINE 15 MG TABLET PO SCH (08:33)
[2024-06-01] MEDS ORDERED: ESCITALOPRAM OXALATE (10 MG) 10 MG TABLET PO SCH (09:00)
[2024-06-01] MEDS ORDERED: AMLODIPINE BESYLATE 10 MG TABLET PO SCH (09:00)
[2024-06-01] MEDS ORDERED: BUPROPION XL 150 MG TAB.ER.24 PO SCH (09:00)
[2024-06-01 16:00] VITALS: BP 120/65; TEMP 97.7; O2SAT 96
[2024-06-01 20:59] VITALS: BP 152/76; TEMP 98.5; O2SAT 100
[2024-06-01] MEDS: ACETAMINOPHEN 325 MG TABLET PO PRN (23:04)
[2024-06-02 04:06] LABS: HEPATITIS B SURFACE AB Reactive (.)
== END 2024-06-01 23:15 | disposition home or self-care (01) | DRG 674 ==
LOC: DS 07:11 → MED 09:58
PROVIDERS: ADMIT Nurse Practitioner Acute Care; ATTEND Nurse Practitioner Acute Care
PROC: 0DQU4ZZ Repair Omentum, Percutaneous Endoscopic Approach (ICD-10-PCS; 2024-05-31)
PROC: 0DQE4ZZ Repair Large Intestine, Percutaneous Endoscopic Approach (ICD-10-PCS; 2024-05-31)
PROC: 0WHG43Z Insertion of Infusion Device into Peritoneal Cavity, Percutaneous Endoscopic Approach (ICD-10-PCS; principal; 2024-05-31 09:00)
PROC: 5A1D70Z Performance of Urinary Filtration, Intermittent, Less than 6 Hours Per Day (ICD-10-PCS; 2024-06-01)
DX: I12.0 Hypertensive chronic kidney disease with stage 5 chronic kidney disease or end stage renal disease (principal); I42.9 Cardiomyopathy, unspecified; N18.6 End stage renal disease; E78.5 Hyperlipidemia, unspecified; D64.9 Anemia, unspecified; Z95.5 Presence of coronary angioplasty implant and graft; E83.9 Disorder of mineral metabolism, unspecified; I25.10 Atherosclerotic heart disease of native coronary artery without angina pectoris; I25.2 Old myocardial infarction; N20.0 Calculus of kidney; K66.0 Peritoneal adhesions (postprocedural) (postinfection); Z88.0 Allergy status to penicillin; Z90.5 Acquired absence of kidney; Z99.2 Dependence on renal dialysis; Z87.442 Personal history of urinary calculi; Z82.49 Family history of ischemic heart disease and other diseases of the circulatory system
CPT/HCPCS: 36415; 80048-TC; 83735-TC; 84100-TC; 85025-TC; 86706; 87081-TC; 87340; 90935-TC; C1750; G0378; J1644; J2250; J2405; J2704; J3010; J3490; J7030

== ENCOUNTER 2024-10-04 09:01 | Inpatient (IN) | payer MEDICARE, OTHER ==
[~2024-10-04] VITALS: Ht 177.8 cm; Wt 66.7 kg
[~2024-10-04 09:01] MED LIST changes: -AMLO-213 PO; +ASPI-1169 PO; +ATOR40TA PO; +BUPIVACAINE MPF 0.5% W/EPI INJ 30 ML VIAL ONE; -BUPR-319 PO; +CARV3.12 PO; -CLON0.5T4 PO; -ESCI20TA PO; -GABA600T12 PO; +HYDR-4076 PO; -HYDR-500 PO; +LIDOCAINE 1% INJ 50 ML MDV IJ ONE; -LOSA25TA27 PO; +MIRT-91 PO; +NITR0.3T SL; -OMEP20TA5 PO; -PRAV40TA3 PO; -QUET25TA PO; +TICA60TA PO
[2024-10-04 10:13] LABS: CALCIUM, SERUM 6.9 mg/dL (8.5-10.1); CREATININE 2.9 mg/dL (0.6-1.3); POTASSIUM 3.6 mmol/L (3.5-5.1)
[2024-10-04] MEDS ORDERED: FENTANYL PF 250MCG/5ML AMPUL ONE (10:21)
[2024-10-04] MEDS ORDERED: ROCURONIUM BROMIDE 50 MG/5 ML ONE (10:22)
[2024-10-04] MEDS ORDERED: HEPARIN SODIUM, PORCINE 1,000 UNIT/ML VIAL ONE (10:59)
[2024-10-04] MEDS ORDERED: MAG HYDROX/AL HYDROX/SIMETH 30 ML UDC PO PRN (14:30)
[2024-10-04] MEDS ORDERED: ACETAMINOPHEN 325 MG TABLET PO PRN (14:30)
[2024-10-04] MEDS ORDERED: ONDANSETRON HCL/PF 4 MG/2 ML VIAL IVP PRN (14:30)
[2024-10-04] MEDS: MORPHINE SULFATE INJ 2 MG/ML DISP.SYRIN IV PRN (15:37)
[2024-10-04 16:00] VITALS: BP 160/75; TEMP 98.4; O2SAT 94
[2024-10-04] MEDS ORDERED: NITROGLYCERIN 0.3 MG TAB.SUBL SL PRN (16:30)
[2024-10-04] MEDS: hydrALAZINE HCL 25 MG TABLET PO SCH (16:47)
[2024-10-04 16:48] VITALS: O2SAT 96
[2024-10-04] MEDS: CARVEDILOL 3.125 MG TABLET PO SCH (16:48)
[2024-10-04] MEDS: ALBUTEROL HALF STRENGTH 1.25 MG/3 ML VIAL.NEB NEB PRN (16:48)
[2024-10-04] MEDS: IPRATROPIUM NEB FS 0.5 MG/2.5 ML AMPUL.NEB NEB PRN (16:48)
[2024-10-04 16:58] VITALS: O2SAT 99
[2024-10-04] MEDS ORDERED: TICAGRELOR 90 MG TABLET PO SCH (17:00)
[2024-10-04 20:00] VITALS: BP 153/93; TEMP 98.4; O2SAT 100
[2024-10-04] MEDS: ATORVASTATIN 40 MG TABLET PO SCH (22:08)
[2024-10-04] MEDS: LORAZEPAM 0.5 MG TABLET PO PRN (22:26)
[2024-10-05 07:30] VITALS: BP 139/79; TEMP 99.3; O2SAT 91
[2024-10-05 07:54] LABS: BASOPHILS % (AUTO) 0.6 % (0.0-2.0); EOSINOPHILS # (AUTO) 0.2 K/uL (0.0-0.7); EOSINOPHILS % (AUTO) 2.4 % (0.0-6.0); HEMATOCRIT 30 % (33-45); HEMOGLOBIN 10.1 g/dL (11.5-14.8); LYMPHOCYTES # (AUTO) 1.7 K/uL (0.8-4.8); LYMPHOCYTES % (AUTO) 24.2 % (20.0-44.0); MEAN CORPUSCULAR HEMOGLOBIN 33 PG (26.0-33.0); MEAN CORPUSCULAR HGB CONC 34 g/dl (31.0-36.0); MEAN CORPUSCULAR VOLUME 97 fL (82-100); MONOCYTES # (AUTO) 0.5 K/uL (0.1-1.30); MONOCYTES % (AUTO) 7.1 % (2.0-12.0); NEUTROPHILS # (AUTO) 4.7 K/uL (1.8-8.9); NEUTROPHILS % (AUTO) 65.7 % (43.0-81.0); PLATELET COUNT (AUTO) 290 K/uL (150-450); RED BLOOD CELL COUNT(AUTO) 3.04 MIL/uL (4.0-5.2); RED CELL DISTRIBUTION WIDTH 15.2 % (11.5-15.0); WHITE BLOOD COUNT (AUTO) 7.2 K/uL (4.3-11.0)
[2024-10-05 08:13] LABS: CALCIUM, SERUM 7.1 mg/dL (8.5-10.1); CREATININE 2.4 mg/dL (0.6-1.3); MAGNESIUM 2.1 mg/dL (1.8-2.4); PHOSPHORUS 2.8 mg/dL (2.5-4.9); POTASSIUM 3.5 mmol/L (3.5-5.1)
[2024-10-05] MEDS: MIRTAZAPINE 15 MG TABLET PO SCH (08:50)
[2024-10-05] MEDS: ASPIRIN 81 MG TAB.CHEW PO SCH (08:50)
[2024-10-05] MEDS: TICAGRELOR 90 MG TABLET PO SCH (08:52)
[2024-10-05 16:00] VITALS: BP 140/61; TEMP 99.1; O2SAT 95
[2024-10-05 20:00] VITALS: BP 163/72; TEMP 98.6; O2SAT 93
[2024-10-05] MEDS: HYDROCODONE/APAP 5/325MG TABLET PO PRN (21:59)
[2024-10-05 22:30] VITALS: BP 142/78
[2024-10-06 05:13] LABS: HEPATITIS B SURFACE AB (QUAL) Reactive (.)
[2024-10-06 07:30] VITALS: BP 139/87; TEMP 97.7; O2SAT 96
[2024-10-06 15:51] VITALS: BP_SYST 127; BP_SYST 97; BP_DIAS 66; BP_DIAS 84; TEMP 97.6; TEMP 98.2; O2SAT 94; O2SAT 97
[2024-10-06 16:31] VITALS: BP 130/70
== END 2024-10-06 17:35 | disposition home health service (06) | DRG 907 ==
LOC: DS 09:01 → MED 13:49
PROVIDERS: ADMIT Nurse Practitioner Acute Care; ATTEND Nurse Practitioner Acute Care
PROC: 0DNU4ZZ Release Omentum, Percutaneous Endoscopic Approach (ICD-10-PCS; 2024-10-04)
PROC: 0DQU4ZZ Repair Omentum, Percutaneous Endoscopic Approach (ICD-10-PCS; 2024-10-04)
PROC: 3E0T3BZ Introduction of Anesthetic Agent into Peripheral Nerves and Plexi, Percutaneous Approach (ICD-10-PCS; 2024-10-04)
PROC: 5A1D70Z Performance of Urinary Filtration, Intermittent, Less than 6 Hours Per Day (ICD-10-PCS; 2024-10-04)
PROC: 0DSN4ZZ Reposition Sigmoid Colon, Percutaneous Endoscopic Approach (ICD-10-PCS; principal; 2024-10-04 11:20)
DX: T85.611A Breakdown (mechanical) of intraperitoneal dialysis catheter, initial encounter (principal); N18.6 End stage renal disease; I12.0 Hypertensive chronic kidney disease with stage 5 chronic kidney disease or end stage renal disease; J45.901 Unspecified asthma with (acute) exacerbation; Q43.8 Other specified congenital malformations of intestine; E87.1 Hypo-osmolality and hyponatremia; Y73.1 Therapeutic (nonsurgical) and rehabilitative gastroenterology and urology devices associated with adverse incidents; Y92.009 Unspecified place in unspecified non-institutional (private) residence as the place of occurrence of the external cause; E78.5 Hyperlipidemia, unspecified; E11.22 Type 2 diabetes mellitus with diabetic chronic kidney disease; Z99.2 Dependence on renal dialysis; Z79.82 Long term (current) use of aspirin; Z79.899 Other long term (current) drug therapy; N73.6 Female pelvic peritoneal adhesions (postinfective); Z82.49 Family history of ischemic heart disease and other diseases of the circulatory system; K66.0 Peritoneal adhesions (postprocedural) (postinfection); Z88.0 Allergy status to penicillin; Z88.1 Allergy status to other antibiotic agents; D64.9 Anemia, unspecified
CPT/HCPCS: 36415; 80048-TC; 83735-TC; 84100-TC; 85025-TC; 86706; 87340; 90935-TC; 94799-TC; 97110-TC; 97116-TC; 97530-TC; A4217; A6403; G0378; J0690; J1644; J2270; J2704; J3010; J3490; J7030